=== PATIENT | female | born 1980 | race Caucasian/White ===

== ENCOUNTER → 2021-03-23 | Emergency (ER) | payer OTHER ==
[~2021-03-23] VITALS: Ht 165.1 cm; Wt 80.7 kg
[~2021-03-23] MED LIST: LEVSIN/SL0.125 MG SL; MAXITROL EYE DRO5 ML OP; PERCOCET 5/3251 TAB PO; TAMS0.4C PO; ZANTAC300 MG PO; ZOFRAN4 MG PO
== END | disposition home or self-care (01) ==
LOC: ER 18:00
DX: T15.11XA Foreign body in conjunctival sac, right eye, initial encounter (principal); W45.8XXA Other foreign body or object entering through skin, initial encounter; Y93.89 Activity, other specified; Y92.89 Other specified places as the place of occurrence of the external cause; Y99.8 Other external cause status

== ENCOUNTER 2021-10-23 15:29 | Emergency (ER) | payer OTHER ==
[~2021-10-23] VITALS: Ht 165.1 cm; Wt 77.1 kg
== END 2021-10-23 20:46 | disposition home or self-care (01) ==
LOC: ER 15:29
DX: N20.1 Calculus of ureter (principal); R10.31 Right lower quadrant pain